=== PATIENT | male | born 1990 | race Caucasian/White ===

== ENCOUNTER → 2016-05-09 | Outpatient (CLI) | payer OTHER ==
[2016-05-09 18:01] LABS: ANION GAP 11 (5-19); BLOOD UREA NITROGEN 17 mg/dL (7-20); CALCIUM 10.4 mg/dL (8.4-10.2); CARBON DIOXIDE 28 mmol/L (22-30); CHLORIDE 101 mmol/L (98-107); CREATININE RESULT 1.02 mg/dL (0.52-1.25); GLUCOSE 88 mg/dL (75-110); POTASSIUM 4.4 mmol/L (3.6-5.0); SODIUM 139.9 mmol/L (137-145)
== END ==
LOC: OD 17:09
PROVIDERS: ATTEND Urology
DX: N20.0 Calculus of kidney (principal)
CPT/HCPCS: 36415; 80048; 81003; 82131; 82340; 82507; 82570; 83735; 83935; 83945; 84105; 84156; 84300; 84392; 84560

== ENCOUNTER → 2016-08-19 | Outpatient (CLI) | payer OTHER ==
[2016-08-19 13:31] LABS: ANION GAP 13 (5-19); BLOOD UREA NITROGEN 15 mg/dL (7-20); CALCIUM 10.1 mg/dL (8.4-10.2); CARBON DIOXIDE 24 mmol/L (22-30); CHLORIDE 103 mmol/L (98-107); GLUCOSE 89 mg/dL (75-110); POTASSIUM 4.2 mmol/L (3.6-5.0); SODIUM 140.1 mmol/L (137-145)
[2016-08-31 15:39] LABS: 24 HR CALCIUM URINE 552 mg/24 hr (50-275); CITRIC ACID (CITRATE) URINE 2 184 mg/L (Not Estab.); CITRIC ACID(CITRATE) URINE 24H 508 mg/24 hr (320-1240); CYCLIC AMP URINE 2.6 UMOL/L (1.5-9.5); MAGNESIUM UR 4.7 mg/dL (Not Estab.); MAGNESIUM URINE 24HR 130 mg/24 hr (12-293); OXALATE UR 19 mg/L (Not Estab.); OXALATE URINE 24HR 52 mg/24 hr (7-44); PH URINE 6.9 (.); PHOSPHORUS URINE 34.4 mg/dL (Not Estab.); PHOSPHORUS URINE 24HR 2 949 mg/24 hr (340-1000); SODIUM URINE 104 mmol/L (Not Estab.); SODIUM URINE 24HR 287 mmol/24 hr (58-337); SULFATE URINE 19 mEq/L (Not Estab.); SULFATE URINE 24HR 52 mEq/24 hr (0-30); URIC ACID URINE 25.9 mg/dL (Not Estab.); URIC ACID URINE 24HR 715 mg/24 hr (250-750)
[2016-09-01 07:07] LABS: SPECIFIC GRAVITY URINE 1.014 (1.010-1.030)
== END ==
LOC: OD 11:36
PROVIDERS: ATTEND Urology
DX: N20.0 Calculus of kidney (principal)
CPT/HCPCS: 36415; 80048; 81003; 82131; 82340; 82507; 82570; 83735; 83935; 83945; 84105; 84156; 84300; 84392; 84560